=== PATIENT | male | born 1995 | race African-American/Black ===

== ENCOUNTER 2016-09-09 11:51 | Emergency (ER) | payer OTHER ==
[~2016-09-09] VITALS: Ht 182.9 cm; Wt 82.1 kg
[~2016-09-09 11:51] MED LIST: BENADRYL ANTI-I85 GM TP; CLARITIN10 M2 PO; IBUPROFEN 600600 M1 PO; IBUPROFEN 800800 M1 PO; NOHOMEMEDICATIONS; NORCO 5-325 TA1 EACH PO; PROTONIX40 MG PO; TRAMADOL 50 MG50 MG PO; ZOFRAN4 MG PO
[2016-09-09] MEDS ORDERED: AMOXICILLIN500 M1 PO (14:19)
[2016-09-09 14:25] VITALS: BP 110/69
== END 2016-09-09 14:27 | disposition home or self-care (01) ==
LOC: ER 11:51
DX: H66.92 Otitis media, unspecified, left ear (principal); J02.9 Acute pharyngitis, unspecified; Z88.8 Allergy status to other drugs, medicaments and biological substances; F10.99 Alcohol use, unspecified with unspecified alcohol-induced disorder; F12.10 Cannabis abuse, uncomplicated

== ENCOUNTER 2018-06-20 21:39 | Emergency (ER) | payer OTHER ==
[~2018-06-20] VITALS: Ht 182.9 cm; Wt 86.2 kg
[~2018-06-20 21:39] MED LIST changes: +AMOXICILLIN500 M1 PO
[2018-06-20] MEDS ORDERED: VOLTAREN GEL 1100 G2 TOP (22:17)
[2018-06-20] MEDS ORDERED: NORFLEX100 MG PO (22:17)
[2018-06-20] MEDS ORDERED: VENTOLIN HFA 1818 GM INH (22:17)
[2018-06-20] MEDS ORDERED: NAPROSYN500 M1 PO (22:38)
[2018-06-20 22:47] VITALS: BP 113/65
== END 2018-06-20 22:48 | disposition home or self-care (01) ==
LOC: ER 21:39
DX: S06.0X0A Concussion without loss of consciousness, initial encounter (principal); S89.92XA Unspecified injury of left lower leg, initial encounter; R63.0 Anorexia; Z91.041 Radiographic dye allergy status; V89.2XXA Person injured in unspecified motor-vehicle accident, traffic, initial encounter; Y92.89 Other specified places as the place of occurrence of the external cause; Y93.89 Activity, other specified; Y99.8 Other external cause status